=== PATIENT | female | born 1970 | race Two or more races ===

== ENCOUNTER 2025-02-26 06:35 | Day surgery (SDC) | payer MEDICAID, SELFPAY ==
[2025-02-25 10:07] VITALS: BMI 29.3
[2025-02-26] VITALS (8 sets, daily range): BP systolic 115–160; BP diastolic 73–105; PULSE 61–66; RESP 11–20; TEMP 36.2–36.4; O2SAT 94–99; BMI 29.0
[2025-02-26] MEDS: SODIUM CHLORIDE 0.9% 500 ML 500 ML 125 ML IV (07:23)
[2025-02-26] MEDS: fentaNYL CIT INJ 50 mCg/ML AMP 2ML (ASD USE ONLY) IVP ×2 (07:27→07:32)
[2025-02-26] MEDS: DiphenhydrAMINE INJ 50 MG/ML VIAL 25 MG IVP (07:27)
[2025-02-26] MEDS: MIDAZOLAM INJ 1 MG/ML VIAL 2 ML (ASD USE ONLY) 2 MG IVP ×2 (07:32→07:39)
== END 2025-02-26 08:15 | disposition home or self-care (01) ==
PROVIDERS: PCP Obstetrics & Gynecology; Referring Provider Surgery; Visit Provider Surgery
PROC: 0DBE8ZX Excision of Large Intestine, Via Natural or Artificial Opening Endoscopic, Diagnostic (ICD-10-PCS; CPT 45380; principal; 2025-02-26 07:30)
DX: Z12.11 Encounter for screening for malignant neoplasm of colon (principal); K64.1 Second degree hemorrhoids
CPT/HCPCS: 45378; J1200; J2250; J3010; J7040